=== PATIENT | female | born 1970 | race Caucasian/White ===

== ENCOUNTER 2017-10-02 07:15 | Outpatient (CLI) | payer OTHER | END 2017-10-02 07:30 | disposition home or self-care (01) | LOC: MAMO-SONO 07:15 | DX: Z12.31 Encounter for screening mammogram for malignant neoplasm of breast (principal); N60.11 Diffuse cystic mastopathy of right breast; N60.12 Diffuse cystic mastopathy of left breast ==

== ENCOUNTER 2019-03-03 08:06 | Outpatient (CLI) | payer OTHER | END 2019-03-03 08:18 | disposition home or self-care (01) | LOC: MAMO-SONO 08:06 | DX: Z12.31 Encounter for screening mammogram for malignant neoplasm of breast (principal); Z87.898 Personal history of other specified conditions; N61.0 Mastitis without abscess ==